=== PATIENT | male | born 1955 | race Caucasian/White ===

== ENCOUNTER 2022-09-05 13:11 | Outpatient (CLI) | payer MEDICARE | END 2022-09-05 13:12 | disposition home or self-care (01) | LOC: LABBT 13:11 | PROVIDERS: ATTEND Neurological Surgery | DX: Z20.822 Contact with and (suspected) exposure to COVID-19 (principal) | CPT/HCPCS: 87811 ==

== ENCOUNTER 2022-09-10 06:45 | Day surgery (SDC) | payer MEDICARE ==
[2022-09-08 15:52] VITALS: BMI 37.9
[2022-09-10] MEDS ORDERED: fentaNYL Citrate/PF 100 MCG/2 ML SYRINGE ONE (06:59)
[2022-09-10] MEDS ORDERED: Sodium Chloride 0.9% 100 ML ONE ×2 (07:56→12:04)
[2022-09-10] MEDS ORDERED: CEFAZOLIN 2 GM VIAL ONE ×2 (07:56→12:04)
[2022-09-10] MEDS ORDERED: Rocuronium Bromide 10 MG/ML (10ML VIAL) ONE (08:08)
[2022-09-10] MEDS ORDERED: PROPOFOL 200 MG/20 ML VIAL ONE (08:08)
[2022-09-10] MEDS ORDERED: Dexamethasone 20 MG/5 ML VIAL ONE (08:08)
[2022-09-10] MEDS ORDERED: Ondansetron PF 4 MG/2 ML Vial ONE (08:08)
[2022-09-10] MEDS ORDERED: Bupivacaine PF 0.5% 30 ML VIAL ONE (08:25)
[2022-09-10] MEDS ORDERED: EPINEPHrine 1 MG/ML AMP ONE (08:25)
[2022-09-10] MEDS ORDERED: Fentanyl 100 MCG/2 ML VIAL ONE ×2 (09:40→10:22)
[2022-09-10] MEDS ORDERED: Tamsulosin HCl 0.4 MG CAP ONE (10:47)
[2022-09-10] MEDS ORDERED: Morphine 2 MG/ML VIAL ONE (11:12)
[2022-09-10] MEDS ORDERED: HYDROcodone/Acetaminophen 5/325 mg Tablet ONE (11:22)
== END 2022-09-10 12:30 | disposition home or self-care (01) ==
LOC: SDC 06:45
PROVIDERS: ATTEND Neurological Surgery
PROC: 01NB0ZZ Release Lumbar Nerve, Open Approach (ICD-10-PCS; principal; 2022-09-10)
DX: M48.061 Spinal stenosis, lumbar region without neurogenic claudication (principal); M48.07 Spinal stenosis, lumbosacral region; M54.16 Radiculopathy, lumbar region; E78.5 Hyperlipidemia, unspecified; G47.30 Sleep apnea, unspecified; E03.9 Hypothyroidism, unspecified; Z79.82 Long term (current) use of aspirin; Z79.890 Hormone replacement therapy; Z79.899 Other long term (current) drug therapy; Z88.1 Allergy status to other antibiotic agents
CPT/HCPCS: 63047; 63048; 76000; J2270; J0171; J0690; J1100; J2405; J2704; J3010; J3490; S0020